=== PATIENT | female | born 1975 | race African-American/Black ===

== ENCOUNTER 2018-04-09 22:34 | Emergency (ER) | payer SELFPAY ==
[~2018-04-09] VITALS: Ht 165.1 cm; Wt 102.1 kg
[2018-04-09] MEDS ORDERED: HYDROCHLOROTHIA25 MG ORAL (22:43)
[2018-04-09 22:50] VITALS: BP 148/99
--- NOTE | 2018-04-09 23:00 | Emergency Room Report ---
History of Present Illness General Chief Complaint: Generalized Weakness Source: Patient Present Illness HPI Is a 42-year-old female with a history of high blood pressure diagnosed last year. She is supposed to be taking hydrochlorothiazide but only intermittently. She presents with chief complaint of headache, dizziness weakness. She thought that her blood pressure behind. She also has a chronic itching and rash his been ongoing for 2 years. She scratchy to the point where she gets scarring up and down her arms. She saw an online [facility] and was prescribed doxycycline. Denies any drug use. Denies any nausea vomiting or diarrhea. Does have family history of high blood pressure. Allergies: Coded Allergies: No Known Allergies (Unverified , 04/09/18) Patient History Past Medical History: see triage record, old chart reviewed, HTN Past Surgical History: none Pertinent Family History: HTN Social History: Denies: smoking Last Menstrual Period: UNK Now: No Immunizations: other Reviewed Nursing Documentation: PMH: Agreed; PSxH: Agreed Nursing Documentation-PMH Past Medical History: No History, Except For Hx Hypertension: Yes Review of Systems Eye: Denies: eye pain, blurred vision ENT: Denies: ear pain, nose congestion, throat swelling Respiratory: Denies: cough, shortness of breath Cardiovascular: Denies: chest pain, palpitations Gastrointestinal: Denies: abdominal pain, diarrhea, nausea, vomiting Musculoskeletal: Denies: back pain, joint pain Skin: Denies: rash Neurological: Reports: headache, dizziness; Denies: numbness Endocrine: Denies: increased thirst, increased urine Hematologic/Lymphatic: Denies: easy bruising All Other Systems: negative except mentioned in HPI Physical Exam Vital Signs Date Time Temp Pulse Resp B/P (MAP) Pulse Ox O2 Delivery O2 Flow Rate FiO2 04/09/18 22:38 99.2 72 16 146/106 98 Room Air 99.1 vitals with high blood pressure Sp02 EP Interpretation: reviewed, normal General Appearance: well appearing, no apparent distress, alert, obese Head: normocephalic, atraumatic Eyes: bilateral eye PERRL, bilateral eye EOMI ENT: hearing grossly normal, normal pharynx Neck: full range of motion, supple, no meningismus Respiratory: chest non-tender, lungs clear, normal breath sounds Cardiovascular #1: regular rate, rhythm, no murmur Gastrointestinal: normal bowel sounds, non tender, no mass, no organomegaly, no bruit, non-distended Musculoskeletal: back normal, gait/station normal, normal range of motion Psychiatric: mood/affect normal Skin: warm/dry Medical Decision Making Diagnostic Impression: Primary Impression: Hypertension Qualified Codes: I10 - Essential (primary) hypertension Additional Impressions: Hypokalemia Generalized pruritus ER Course This presents with vague symptoms. She's also has generalized itching this been chronic in nature. No evidence of infection. She's not comfortable taking hydrochlorothiazide so will switch her to different blood pressure medication. No evidence of endorgan damage. We'll discharge home. Last Vital Signs Date Time Temp Pulse Resp B/P (MAP) Pulse Ox O2 Delivery O2 Flow Rate FiO2 04/09/18 22:50 99.1 78 16 148/99 98 Room Air 99.1 Status: improved Disposition: HOME, SELF-CARE Condition: Stable Scripts Amlodipine Besylate (Norvasc) 5 Mg Tablet 5 MG ORAL DAILY, #30 TAB Prov: TRISTON SEAY M.D. 04/10/18 Diphenhydramine Hcl* (BENADRYL*) 25 Mg Capsule 50 MG ORAL Q6H PRN for Itching, #30 CAP Prov: TRISTON SEAY M.D. 04/10/18 Additional Instructions: Follow-up with your doctor in 7 days. Return of worse. TRISTON SEAY M.D. Apr 09, 2018 23:00
[2018-04-09 23:11] LABS: APPEARANCE,URINE CLEAR; BILIRUBIN, URINE NEGATIVE (NEGATIVE); COLOR,URINE PALE YELLOW; GLUCOSE, URINE (UA) NEGATIVE (NEGATIVE); KETONES,URINE NEGATIVE (NEGATIVE); LEUKOCYTE ESTERASE ,URINE NEGATIVE (NEGATIVE); NITRITE,URINE NEGATIVE (NEGATIVE); PH,URINE 5 (4.5-8.0); PROTEIN,URINE NEGATIVE (NEGATIVE); UROBILINOGEN,URINE NORMAL MG/DL (0.0-1.0)
[2018-04-09] MEDS ORDERED: DiphenhydrAMINE 50mg/ml Inj IVP ONE (23:30)
[2018-04-09 23:32] LABS: BASOPHILS % (AUTO) 1.2 % (0.0-2.0); EOSINOPHILS % (AUTO) 5.2 % (0.0-3.0); HEMATOCRIT 46.7 % (37.0-47.0); HEMOGLOBIN 14.9 G/DL (12.0-16.0); MEAN CORPUSCULAR VOLUME 78 FL (80-99); MONOCYTES % (AUTO) 6.3 % (1.0-10.0); NEUTROPHILS % (AUTO) 60.3 % (45.0-75.0); PLATELET COUNT 230 K/UL (150-450); RED BLOOD COUNT 5.96 M/UL (4.20-5.40); RED CELL DISTRIBUTION WIDTH 13.1 % (11.6-14.8); WHITE BLOOD COUNT 8.2 K/UL (4.8-10.8)
[2018-04-09 23:41] VITALS: BP 133/95
[2018-04-09 23:43] LABS: ANION GAP 10 mmol/L (5-15); BLOOD UREA NITROGEN 15 mg/dL (7-18); CALCIUM 9.6 MG/DL (8.5-10.1); CARBON DIOXIDE 28 MMOL/L (21-32); CHLORIDE 103 MMOL/L (98-107); CREATININE 1.1 MG/DL (0.55-1.30); POTASSIUM 3.1 MMOL/L (3.5-5.1); SODIUM 141 MMOL/L (136-145)
[2018-04-09 23:48] LABS: ALANINE AMINOTRANSFERASE 34 U/L (12-78); ALBUMIN 4.1 G/DL (3.4-5.0); ALKALINE PHOSPHATASE 68 U/L (46-116); ASPARTATE AMINO TRANSFERASE 19 U/L (15-37); BILIRUBIN,TOTAL 0.3 MG/DL (0.2-1.0)
[2018-04-10] MEDS ORDERED: BENADRYL25 MG ORAL (00:12)
[2018-04-10] MEDS ORDERED: NORVASC5 MG ORAL (00:12)
[2018-04-10 00:23] VITALS: BP 133/95
== END 2018-04-10 00:51 | disposition home or self-care (01) ==
LOC: EMR 23:47
DX: I10 Essential (primary) hypertension (principal); E87.6 Hypokalemia; L29.9 Pruritus, unspecified
CPT/HCPCS: 36415; 80053; 80307; 81001; 85025; 96374; 99284; J1200; J8499